=== PATIENT | female | born 1965 | race Caucasian/White ===

== ENCOUNTER → 2023-11-13 18:48 | Outpatient (REF) | payer OTHER, SELFPAY | LOC: WDC 18:48 | PROVIDERS: ATTENDING PHYSICIAN Emergency Medicine | DX: Z12.31 Encounter for screening mammogram for malignant neoplasm of breast (principal) | CPT/HCPCS: 77063; 77067 ==

== ENCOUNTER → 2024-12-04 15:48 | Outpatient (REF) | payer OTHER, SELFPAY | LOC: WDC 15:48 | PROVIDERS: ATTENDING PHYSICIAN Emergency Medicine | DX: Z12.31 Encounter for screening mammogram for malignant neoplasm of breast (principal) | CPT/HCPCS: 77063; 77067 ==

== ENCOUNTER → 2025-01-31 14:52 | Outpatient (REF) | payer OTHER, SELFPAY | LOC: HWRAD 14:52 | DX: Z87.891 Personal history of nicotine dependence (principal) | CPT/HCPCS: 71271 ==